=== PATIENT | male | born 1965 | race African-American/Black ===

== ENCOUNTER → 2016-08-25 | Outpatient (CLI) | payer OTHER, MEDICAID ==
[2016-06-09 11:21] VITALS: BP 125/85
[2016-08-25 08:59] LABS: BASOPHILS % (AUTO) 0.7 % (0.2-1.0); EOSINOPHILS # (AUTO) 0.1 x10^3/uL (0.0-0.2); EOSINOPHILS % (AUTO) 2.7 % (0.9-2.9); HEMATOCRIT 50.5 % (42.0-54.0); HEMOGLOBIN 16.8 g/dL (13.5-18.0); LYMPHOCYTES # (AUTO) 1.9 X10^3/uL (1.3-2.9); MEAN CORPUSCULAR HEMOGLOBIN 28.5 pg (27.0-34.0); MEAN CORPUSCULAR HGB CONC 33.2 g/dL (33.0-35.0); MEAN CORPUSCULAR VOLUME 85.9 fL (80.0-100.0); MEAN PLATELET VOLUME 9.2 fL (7.4-11.0); MONOCYTES # (AUTO) 0.4 x10^3/uL (0.3-0.8); MONOCYTES % (AUTO) 8.7 % (0.0-13.0); NEUTROPHILS # (AUTO) 2.5 x10^3/uL (2.2-4.8); NEUTROPHILS % (AUTO) 49.9 % (42.0-75.0); PLATELET COUNT 168 X10^3/uL (150.0-450.0); RED BLOOD COUNT 5.88 X10^6/uL (4.7-6.0); RED CELL DISTRIBUTION WIDTH 15.4 % (11.6-16.5)
[2016-08-25 09:20] LABS: CREATININE,URINE 197.68 mg/dL (40-278)
[2016-08-25 09:42] LABS: ALANINE AMINOTRANSFERASE 28 Units/L (12-78); ALBUMIN 2.9 g/dL (3.4-5.0); ALKALINE PHOSPHATASE 77 Units/L (46-116); ASPARTATE AMINO TRANSFERASE 15 Units/L (15-37); BLOOD UREA NITROGEN 15 mg/dL (7-18); CALCIUM 8.9 mg/dL (8.5-10.1); CARBON DIOXIDE 27.4 mmol/L (21-32); CHLORIDE 108 mmol/L (98-107); CHOL/HDL RATIO 4.9 (0.0-5.0); CHOLESTEROL 170 mg/dL (0-200); COR CA(FOR HYPOALB) 9.8 mg/dL (8.5-10.1); CREATININE 1.96 mg/dL (0.70-1.30); GLUCOSE 91 mg/dL (65-99); HDL CHOLESTEROL 35 mg/dL (40-60); SODIUM 144 mmol/L (136-145); T4 (THYROXINE) 9.3 ug/dL (4.7-13.3); TOTAL PROTEIN 6.5 g/dL (6.4-8.2); TRIGLYCERIDES 143 mg/dL (0-150); URIC ACID 7.1 mg/dL (3.5-7.2); eGFR BLACK RACES 47 (>60); eGFR NON BLACK RACES 39 (>60)
[2016-08-25 10:01] LABS: MICROALBUMIN,URINE > 2000.0 mg/L
[2016-08-25 10:02] LABS: MICROALBUM/CREATININE RATIO,UR > 1011 mg/g cre (0-29)
== END ==
LOC: LAB 08:06
PROVIDERS: ATTEND Nurse Practitioner Family
DX: E11.9 Type 2 diabetes mellitus without complications (principal); I13.10 Hypertensive heart and chronic kidney disease without heart failure, with stage 1 through stage 4 chronic kidney disease, or unspecified chronic kidney disease
CPT/HCPCS: 36415; 80053; 80061; 82043; 83036; 84436; 84443; 84550; 85025

== ENCOUNTER → 2016-12-19 | Outpatient (CLI) | payer OTHER, MEDICAID ==
[2016-06-09 11:21] VITALS: BP 125/85
[2016-12-19 09:21] LABS: BASOPHILS # (AUTO) 0.1 X10^3/uL (0.0-0.1); BASOPHILS % (AUTO) 1.3 % (0.2-1.0); EOSINOPHILS # (AUTO) 0.1 x10^3/uL (0.0-0.2); HEMATOCRIT 52.1 % (42.0-54.0); HEMOGLOBIN 17.7 g/dL (13.5-18.0); LYMPHOCYTES # (AUTO) 1.6 X10^3/uL (1.3-2.9); LYMPHOCYTES % (AUTO) 31.2 % (21.0-51.0); MEAN CORPUSCULAR HGB CONC 33.9 g/dL (33.0-35.0); MEAN CORPUSCULAR VOLUME 85.5 fL (80.0-100.0); MONOCYTES # (AUTO) 0.4 x10^3/uL (0.3-0.8); MONOCYTES % (AUTO) 7.2 % (0.0-13.0); NEUTROPHILS # (AUTO) 2.9 x10^3/uL (2.2-4.8); NEUTROPHILS % (AUTO) 57.3 % (42.0-75.0); PLATELET COUNT 199 X10^3/uL (150.0-450.0); RED CELL DISTRIBUTION WIDTH 15.1 % (11.6-16.5)
[2016-12-19 09:43] LABS: ALBUMIN 3.3 g/dL (3.4-5.0); CALCIUM 9.4 mg/dL (8.5-10.1); CARBON DIOXIDE 30.6 mmol/L (21-32); CREATININE 1.99 mg/dL (0.70-1.30); FREE T4 (FREE THYROXINE) 1.12 ng/dL (0.76-1.46); TOTAL PROTEIN 7.1 g/dL (6.4-8.2); TSH (3RD GENERATION) 2.498 uIU/mL (0.358-3.74)
[2016-12-19 10:05] LABS: CREATININE,URINE 163.87 mg/dL (40-278)
[2016-12-19 10:14] LABS: TOTAL PSA 0.38 ng/mL (0.13-4.0)
[2016-12-19 10:16] LABS: MICROALBUM/CREATININE RATIO,UR 1220 mg/g cre (0-29); MICROALBUMIN,URINE > 2000.0 mg/L
[2016-12-21 22:27] LABS: HEPATITIS A ANTIBODY IGM Negative (Negative)
[2016-12-22 06:14] LABS: HEPATITIS B CORE IGM Negative (Negative); HEPATITIS B SURFACE ANTIGEN Negative (Negative)
== END ==
LOC: LAB 08:40
PROVIDERS: ATTEND Nurse Practitioner Family
DX: I13.10 Hypertensive heart and chronic kidney disease without heart failure, with stage 1 through stage 4 chronic kidney disease, or unspecified chronic kidney disease (principal); E11.9 Type 2 diabetes mellitus without complications; E03.8 Other specified hypothyroidism; E78.4 Other hyperlipidemia; Z12.5 Encounter for screening for malignant neoplasm of prostate; Z20.5 Contact with and (suspected) exposure to viral hepatitis; R39.12 Poor urinary stream; R53.83 Other fatigue; Z01.89 Encounter for other specified special examinations
CPT/HCPCS: 36415; 80053; 80061; 80074; 82043; 83036; 84153; 84439; 84443; 84481; 85025

== ENCOUNTER → 2017-03-20 | Outpatient (CLI) | payer OTHER, MEDICAID ==
[2016-06-09 11:21] VITALS: BP 125/85
[2017-03-20 08:47] LABS: BLOOD UREA NITROGEN 15 mg/dL (7-18); CALCIUM 8.8 mg/dL (8.5-10.1); CARBON DIOXIDE 30.8 mmol/L (21-32); CHLORIDE 109 mmol/L (98-107); CREATININE 2.05 mg/dL (0.70-1.30); SODIUM 145 mmol/L (136-145); TSH (3RD GENERATION) 4.023 uIU/mL (0.358-3.74); eGFR BLACK RACES 45 (>60); eGFR NON BLACK RACES 37 (>60)
== END ==
LOC: LAB 07:50
PROVIDERS: ATTEND Nurse Practitioner Family
DX: E03.8 Other specified hypothyroidism (principal); E11.9 Type 2 diabetes mellitus without complications; I13.10 Hypertensive heart and chronic kidney disease without heart failure, with stage 1 through stage 4 chronic kidney disease, or unspecified chronic kidney disease
CPT/HCPCS: 36415; 80048; 83036; 84443

== ENCOUNTER → 2017-05-23 | Outpatient (CLI) | payer OTHER, MEDICAID ==
[2016-06-09 11:21] VITALS: BP 125/85
[2017-05-23 09:12] LABS: HEMOGLOBIN A1C 6.8 % (4.5-6.2)
[2017-05-23 09:33] LABS: ALANINE AMINOTRANSFERASE 34 Units/L (12-78); ALKALINE PHOSPHATASE 85 Units/L (46-116); ASPARTATE AMINO TRANSFERASE 20 Units/L (15-37); BLOOD UREA NITROGEN 21 mg/dL (7-18); CALCIUM 9.4 mg/dL (8.5-10.1); CARBON DIOXIDE 28.3 mmol/L (21-32); CHLORIDE 107 mmol/L (98-107); CHOL/HDL RATIO 4.7 (0.0-5.0); CHOLESTEROL 174 mg/dL (0-200); COR CA(FOR HYPOALB) 10.2 mg/dL (8.5-10.1); CREATININE 2.35 mg/dL (0.70-1.30); HDL CHOLESTEROL 37 mg/dL (40-60); SODIUM 143 mmol/L (136-145); TOTAL PROTEIN 6.5 g/dL (6.4-8.2); TRIGLYCERIDES 202 mg/dL (0-150); TSH (3RD GENERATION) 2.803 uIU/mL (0.358-3.74); eGFR BLACK RACES 38 (>60); eGFR NON BLACK RACES 31 (>60)
== END | disposition home or self-care (01) | DRG 305 ==
LOC: LAB 08:11
PROVIDERS: ATTEND Nurse Practitioner Family
DX: I13.10 Hypertensive heart and chronic kidney disease without heart failure, with stage 1 through stage 4 chronic kidney disease, or unspecified chronic kidney disease (principal); E11.9 Type 2 diabetes mellitus without complications; E03.8 Other specified hypothyroidism
CPT/HCPCS: 36415; 80053; 80061; 83036; 84436; 84443

== ENCOUNTER → 2017-09-12 | Outpatient (CLI) | payer OTHER, MEDICAID ==
[2016-06-09 11:21] VITALS: BP 125/85
[2017-09-12 08:42] LABS: BASOPHILS # (AUTO) 0.1 X10^3/uL (0.0-0.1); BASOPHILS % (AUTO) 1.2 % (0.2-1.0); EOSINOPHILS # (AUTO) 0.2 x10^3/uL (0.0-0.2); HEMATOCRIT 53.8 % (42.0-54.0); HEMOGLOBIN 18.1 g/dL (13.5-18.0); LYMPHOCYTES # (AUTO) 2.2 X10^3/uL (1.3-2.9); LYMPHOCYTES % (AUTO) 40.9 % (21.0-51.0); MEAN CORPUSCULAR HEMOGLOBIN 28.4 pg (27.0-34.0); MEAN CORPUSCULAR HGB CONC 33.6 g/dL (33.0-35.0); MEAN CORPUSCULAR VOLUME 84.6 fL (80.0-100.0); MEAN PLATELET VOLUME 9.2 fL (7.4-11.0); MONOCYTES # (AUTO) 0.4 x10^3/uL (0.3-0.8); MONOCYTES % (AUTO) 7.8 % (0.0-13.0); NEUTROPHILS # (AUTO) 2.5 x10^3/uL (2.2-4.8); NEUTROPHILS % (AUTO) 46.1 % (42.0-75.0); PLATELET COUNT 191 X10^3/uL (150.0-450.0); RED BLOOD COUNT 6.36 X10^6/uL (4.7-6.0); RED CELL DISTRIBUTION WIDTH 15.2 % (11.6-16.5); WHITE BLOOD COUNT 5.5 X10^3/uL (3.6-10.0)
[2017-09-12 08:43] LABS: HEMOGLOBIN A1C 6.4 %
[2017-09-12 08:46] LABS: CREATININE,URINE 98.4 mg/dL (40-278)
[2017-09-12 09:22] LABS: MICROALBUMIN,URINE 2672.4 mg/L
[2017-09-12 10:28] LABS: ALANINE AMINOTRANSFERASE 34 Units/L (12-78); ALBUMIN 3.1 g/dL (3.4-5.0); ALKALINE PHOSPHATASE 107 Units/L (46-116); ASPARTATE AMINO TRANSFERASE 21 Units/L (15-37); BLOOD UREA NITROGEN 18 mg/dL (7-18); CALCIUM 9.5 mg/dL (8.5-10.1); CARBON DIOXIDE 28.5 mmol/L (21-32); CHLORIDE 108 mmol/L (98-107); CHOLESTEROL 219 mg/dL (0-200); COR CA(FOR HYPOALB) 10.2 mg/dL (8.5-10.1); CREATININE 2.15 mg/dL (0.70-1.30); HDL CHOLESTEROL 44 mg/dL (40-60); SODIUM 144 mmol/L (136-145); TOTAL PROTEIN 6.6 g/dL (6.4-8.2); TRIGLYCERIDES 168 mg/dL (0-150); TSH (3RD GENERATION) 2.994 uIU/mL (0.358-3.74); eGFR BLACK RACES 42 (>60); eGFR NON BLACK RACES 35 (>60)
== END ==
LOC: LAB 07:22
PROVIDERS: ATTEND Psychiatry & Neurology Neurology
DX: I13.10 Hypertensive heart and chronic kidney disease without heart failure, with stage 1 through stage 4 chronic kidney disease, or unspecified chronic kidney disease (principal); E11.9 Type 2 diabetes mellitus without complications; E78.4 Other hyperlipidemia; E03.8 Other specified hypothyroidism; R35.1 Nocturia
CPT/HCPCS: 36415; 80053; 80061; 82043; 83036; 84153; 84443; 85025